=== PATIENT | female | born 1955 | race Caucasian/White ===

== ENCOUNTER 2023-04-27 18:56 | Outpatient (RCR) | payer OTHER, SELFPAY | END 2023-04-27 23:59 | disposition home or self-care (01) | LOC: RPT 18:56 | PROVIDERS: ATTENDING PHYSICIAN Family Medicine; FAMILY PHYSICIAN Family Medicine | DX: M21.821 Other specified acquired deformities of right upper arm (principal); M67.821 Other specified disorders of synovium, right elbow; M25.511 Pain in right shoulder; M67.911 Unspecified disorder of synovium and tendon, right shoulder; S43.004D Unspecified dislocation of right shoulder joint, subsequent encounter; S40.011D Contusion of right shoulder, subsequent encounter | CPT/HCPCS: 97010; 97110 ==

== ENCOUNTER → 2024-01-04 10:34 | Outpatient (REF) | payer OTHER, SELFPAY | LOC: DHSLP 10:34 | PROVIDERS: ATTENDING PHYSICIAN Family Medicine | DX: G47.33 Obstructive sleep apnea (adult) (pediatric) (principal) | CPT/HCPCS: 95800 ==